=== PATIENT | female | born 1995 | race Caucasian/White ===

== ENCOUNTER 2016-09-29 17:00 | Emergency (ER) | payer SELFPAY ==
[~2016-09-29] VITALS: Ht 157.5 cm; Wt 97.9 kg
[2016-09-29 17:28] LABS: HEMATOCRIT 40.8 % (36.0-46.0); MCH 29.5 PG (29.0-34.0); MCHC 32.1 G/DL (30.0-36.0); MCV 91.9 FL (83-99); MEAN PLAT.VOLUME 8.7 uM^3 (9.5-12.4); PLATELET COUNT 310 K/uL (156-360); RBC DIS.WIDTH-CV 13.2 % (11.8-14.6); RBC DIS.WIDTH-SD 44.9 % (39-53); RED BLOOD COUNT 4.44 M/uL (3.80-5.20); WHITE BLOOD COUNT 4.8 K/uL (4.1-10.2)
[2016-09-29 17:39] LABS: CHLORIDE 111 mEq/L (99-109); POTASSIUM 4.2 mEq/L (3.7-5.4); SODIUM 145 mEq/L (136-147)
[2016-09-29 17:40] LABS: GLUCOSE 81 mg/dL (70-99)
[2016-09-29 17:42] LABS: ANION GAP 10 MEQ/L (2-14)
[2016-09-29 17:44] LABS: SERUM ETHYL ALCOHOL 147 mg/dL
[2016-09-29 17:45] LABS: UREA NITROGEN (BUN) 9 mg/dL (9-23)
[2016-09-29 17:46] LABS: GFR ESTIMATE (CALCULATED) > 59 mL/min/
[2016-09-29 18:37] VITALS: BP 119/83
== END 2016-09-29 18:58 | disposition home or self-care (01) ==
LOC: EME 17:00
PROVIDERS: Emergency Medicine
DX: T67.5XXA Heat exhaustion, unspecified, initial encounter (principal); X30.XXXA Exposure to excessive natural heat, initial encounter; F10.129 Alcohol abuse with intoxication, unspecified; Y90.6 Blood alcohol level of 120-199 mg/100 ml; F17.200 Nicotine dependence, unspecified, uncomplicated
CPT/HCPCS: 80048; 85027; 99281; 99284; G0480; J7030